=== PATIENT | male | born 1970 | race Caucasian/White ===

== ENCOUNTER 2016-12-02 14:16 | Inpatient (IN) | payer OTHER ==
[2016-12-02 14:33] LABS: HEMATOCRIT 39.7 % (38.0-50.0); MCH 29.6 PG (29.0-34.0); MCHC 33.8 G/DL (30.0-36.0); MCV 87.8 FL (86-99); MEAN PLAT.VOLUME 9.5 uM^3 (9.0-12.4); PLATELET COUNT 414 K/uL (156-360); RBC DIS.WIDTH-CV 12.4 % (11.8-14.6); RED BLOOD COUNT 4.52 M/uL (4.00-5.50)
[2016-12-02 14:34] LABS: EOSINOPHIL (%) 6.6 % (0-5); EOSINOPHIL COUNT 0.8 K/uL (0-0.3); IMMATURE GRANULOCYTE (%) 0.8 % (0.0-0.7); LYMPHOCYTE COUNT 3.3 K/uL (1.0-2.8); MONOCYTE (%) 5.3 % (3-12); MONOCYTE COUNT 0.6 K/uL (0-0.8); NEUTROPHIL (%) 59.6 % (45-76); NEUTROPHIL COUNT 7.2 K/uL (1.8-6.4)
[2016-12-02 14:42] LABS: AMYLASE 41 IU/L (1-118); CHLORIDE 105 mEq/L (99-109); POTASSIUM 4.7 mEq/L (3.7-5.4); SODIUM 141 mEq/L (136-147)
[2016-12-02 14:44] LABS: GLUCOSE 121 mg/dL (70-99)
[2016-12-02 14:45] LABS: ANION GAP 13 MEQ/L (2-14)
[2016-12-02 14:47] LABS: SERUM ETHYL ALCOHOL < 10 mg/dL
[2016-12-02 14:48] LABS: GFR ESTIMATE (CALCULATED) > 59 mL/min/
[2016-12-02 14:49] LABS: UREA NITROGEN (BUN) 15 mg/dL (9-23)
[2016-12-02 14:51] LABS: LIPASE 16 U/L (1.0-51.0)
[2016-12-02] MEDS ORDERED: NIZORAL 2% CREA15 GM TP (15:54)
[2016-12-02] MEDS ORDERED: METHADONE1 MG/1 ML PO (15:55)
[2016-12-02] MEDS ORDERED: PROAIR HFA8.5 GM IH (15:56)
[2016-12-02 16:32] LABS: ADD MIUA? NO; BILIRUBIN NEGATIVE; BLOOD NEGATIVE; COLOR YELLOW ((YELLOW)); GLUCOSE (STRIP) NEGATIVE; KETONES NEGATIVE; LEUKOCYTES NEGATIVE; NITRITE NEGATIVE; PH, URINE 5.5 (5-8); PROTEIN (STRIP) NEGATIVE; UCUL ADDED? NO; UROBILINOGEN 0.2 MG/DL (0.2-1.0)
[2016-12-02 16:43] LABS: AMPHETAMINE NEGATIVE (500 ng/mL); BARBITURATES NEGATIVE (200 ng/mL); BENZODIAZEPINES NEGATIVE (150 ng/mL); COCAINE NEGATIVE (150 ng/mL); METHAMPHETAMINE NEGATIVE (500 ng/mL); OPIATES (MORPHINE) PRESUMPTIVE POSITIVE (100 ng/mL); OXYCODONE NEGATIVE (100 ng/mL); PHENCYCLIDINE NEGATIVE (25 ng/mL); THC CANNABINOIDS NEGATIVE (50 ng/mL); TRICYCLIC ANTIDEPRESSANTS NEGATIVE (300 ng/mL)
[2016-12-02 16:44] LABS: ADD MEDTOX COMMENT Y; INTERNAL CONTROLS VALID? YES; METHADONE PRESUMPTIVE POSITIVE (200 ng/mL); PROPOXYPHENE NEGATIVE (300 ng/mL)
[2016-12-02 16:58] LABS: SPECIFIC GRAVITY 1.072 (1.000-1.030)
[2016-12-02 17:19] VITALS: BP 141/90
[2016-12-02 19:48] VITALS: BP 142/83
[2016-12-03] VITALS: BP 140/79
[2016-12-03 05:43] VITALS: BP 134/79
[2016-12-03 06:22] LABS: HEMATOCRIT 35.3 % (38.0-50.0); MCH 29.7 PG (29.0-34.0); MCHC 32.9 G/DL (30.0-36.0); MCV 90.3 FL (86-99); RBC DIS.WIDTH-CV 12.9 % (11.8-14.6); RED BLOOD COUNT 3.91 M/uL (4.00-5.50); WHITE BLOOD COUNT 8.4 K/uL (4.1-10.2)
[2016-12-03 06:46] LABS: ALKALINE PHOSPHATASE 67 IU/L (3-129); ANION GAP 10 MEQ/L (2-14); CHLORIDE 99 MEQ/L (99-109); GFR ESTIMATE (CALCULATED) > 59 mL/min/; GLUCOSE 119 mg/dL (70-99); POTASSIUM 3.9 MEQ/L (3.7-5.4); SAMPLE HEMOLYSIS CHECK 0; SAMPLE ICTERIC CHECK 0; SAMPLE LIPEMIA CHECK 0; SODIUM 139 MEQ/L (136-147); TOTAL BILIRUBIN 0.6 MG/DL (0.0-1.0); UREA NITROGEN (BUN) 9 mg/dL (9-23)
[2016-12-03 07:29] LABS: HEMATOLOGY COMMENT 1 REV
[2016-12-03 07:33] LABS: PLATELET COUNT 288 K/uL (156-360)
[2016-12-03 08:26] VITALS: BP 167/91
[2016-12-03 20:47] VITALS: BP 130/72
[2016-12-04 01:28] VITALS: BP 132/86
[2016-12-04 04:54] VITALS: BP 122/75
[2016-12-04 08:38] VITALS: BP 118/63
[2016-12-04 11:03] VITALS: BP 136/82
[2016-12-04 16:23] VITALS: BP 131/74
[2016-12-04 20:31] VITALS: BP 162/88
[2016-12-05] VITALS (7 sets, daily range): BP systolic 108–147; BP diastolic 62–81
[2016-12-06 04:45] VITALS: BP 116/74
[2016-12-06 08:15] VITALS: BP 117/67
[2016-12-06 12:07] VITALS: BP 118/68
[2016-12-06] MEDS ORDERED: SENNA LAX8.6 MG PO (15:58)
[2016-12-06] MEDS ORDERED: CHLORZOXAZONE500 MG PO (15:58)
[2016-12-06] MEDS ORDERED: GABAPENTIN300 MG PO (15:58)
[2016-12-06] MEDS ORDERED: OXYCODONE HCL5 MG PO (15:58)
[2016-12-06 16:23] VITALS: BP 117/7
== END 2016-12-06 18:27 | disposition home or self-care (01) | DRG 206 ==
LOC: TRA 14:16 → EDOF 14:59 → 3EAST 14:59
PROVIDERS: Emergency Medicine; Surgery
DX: S27.321A Contusion of lung, unilateral, initial encounter (principal); S22.41XA Multiple fractures of ribs, right side, initial encounter for closed fracture; S27.0XXA Traumatic pneumothorax, initial encounter; S42.021A Displaced fracture of shaft of right clavicle, initial encounter for closed fracture; V80.010A Animal-rider injured by fall from or being thrown from horse in noncollision accident, initial encounter; Y93.52 Activity, horseback riding; F11.20 Opioid dependence, uncomplicated; J45.909 Unspecified asthma, uncomplicated; M47.812 Spondylosis without myelopathy or radiculopathy, cervical region
CPT/HCPCS: 70450; 71010; 71260; 72125; 72129; 72132; 73000; 74177; 80048; 80053; 81003; 82150; 83690; 84999; 85025; 85027; 86850; 86900; 86901; 94799; 97530 GO; 99281; 99285; G0480; J1170; J1650; J2060; J2405; J3010; J3480